=== PATIENT | female | born 1970 | race Caucasian/White ===

== ENCOUNTER → 2022-05-04 14:57 | Outpatient (CLI) | payer BC, SELFPAY ==
[2022-05-04 13:58] LABS: Alanine Aminotransferase 26 U/L (12-78); Albumin Level 4.4 g/dl (3.5-5.0); Albumin/Globulin Ratio 1.8 (1.1-1.8); Alkaline Phosphatase 67 U/L (38-126); Anion Gap 10.9 mEq/L (5-15); Aspartate Amino Transferase 33 U/L (14-36); Bilirubin,Total 0.6 mg/dl (0.2-1.3); Blood Urea Nitrogen 14 mg/dl (7-17); Calcium 9.6 mg/dl (8.4-10.2); Carbon Dioxide 29 mmol/L (22.0-30.0); Chloride 104 mmol/L (98-107); Chol/HDL Ratio 3.5 (1-3.5); Cholesterol 217 mg/dl (140-200); Estimated Glomerular Filt Rate 105 ml/min (>60); GFR (African American) 127 ML/MIN (>60); Globulin 2.5 g/dL (1.3-3.2); Glucose 105 mg/dl (74-100); HDL Cholesterol 62 mg/dl (40-60); Potassium 3.9 mmoL/L (3.5-5.1); Sodium 140 mmol/L (136-145); Total Protein,Serum 6.9 g/dl (6.3-8.2); Triglycerides 62 mg/dl (30-150); Uric Acid 4.2 mg/dl (2.5-6.2); VLDL Cholesterol 12 mg/dL (0-40)
[2022-05-04 14:03] LABS: Basophils # 0.1 K/mm3 (0-0.2); Basophils % 1.9 % (0.1-2.0); Eosinophils # 0.1 K/mm3 (0.0-0.4); Eosinophils % 1.2 % (0.1-12.0); Hematocrit 42.4 % (37.0-47.0); Hemoglobin 13.9 g/dL (12.2-16.2); Lymphocytes # 1.4 K/mm3 (0.7-4.5); Lymphocytes % 31.3 % (10-50); Mean Corpuscular HGB Conc 32.9 g/dL (31.8-35.4); Mean Corpuscular Volume 97.3 fl (81-99); Mean Platelet Volume 11.4 fl (7.4-10.4); Monocytes # 0.2 K/mm3 (0.1-1.0); Monocytes % 4.2 % (1.7-9.3); Neutrophils # 2.6 K/mm3 (1.8-7.8); Neutrophils % 61.4 % (37.0-80.0); Platelet Count 167 K/mm3 (142-424); Red Blood Count 4.36 M/mm3 (4.20-5.40); Red Cell Distribution Width 13.8 % (11.5-17.5); White Blood Count 4.3 K/mm3 (4.8-10.8)
[2022-05-04 14:09] LABS: C-Reactive Protein 0.3 mg/L (0-4); Direct LDL Cholesterol 110.89 mg/dL (100-129)
[2022-05-04 14:16] LABS: 25-OH Vitamin D, Total 31.7 ng/mL (30-100)
[2022-05-04 14:29] LABS: Thyroid Stimulating Hormone 0.99 uIU/mL (0.465-4.68)
[2022-05-04 14:48] LABS: Vitamin B12 428 pg/mL (239-931)
[2022-05-04 15:19] LABS: Erythrocyte Sedimentation Rate 16 mm/hr (0-30)
[2022-05-05 08:07] LABS: RA Latex Turbid. <10.0 IU/mL (<14.0)
[2022-05-05 14:20] LABS: Anti-Centromere B Antibodies <0.2 AI (0.0-0.9); Anti-DNA (DS) Ab Qn 1 IU/mL (0-9); Anti-Jo-1 <0.2 AI (0.0-0.9); Anti-Smith Antibody <0.2 AI (0.0-0.9); Antichromatin Antibodies <0.2 AI (0.0-0.9); Antiscleroderma-70 Antibodies <0.2 AI (0.0-0.9); RNP Antibodies <0.2 AI (0.0-0.9); Sjogren's Anti-SS-A <0.2 AI (0.0-0.9); Sjogren's Anti-SS-B <0.2 AI (0.0-0.9)
[2022-05-06 03:40] LABS: Anti-Cyclic Citrullinated Pept 4 units (0-19)
== END ==
PROVIDERS: PCP Physician Assistant; Visit Provider Physician Assistant
DX: M25.50 Pain in unspecified joint (principal); Z76.89 Persons encountering health services in other specified circumstances
CPT/HCPCS: 80053; 80061; 82306; 82607; 84443; 84550; 85025; 85651; 86140; 86200; 86225; 86235; 86431

== ENCOUNTER → 2022-11-23 11:08 | Outpatient (CLI) | payer BC, SELFPAY ==
--- NOTE | 2022-11-23 11:13 | XR_ITS ---
FINAL REPORT CLINICAL HISTORY: bone spur FINDINGS: LEFT FOOT Three views of the left foot demonstrate no acute fracture or dislocation. The joint spaces are preserved. The soft tissues are unremarkable. IMPRESSION: No acute bony abnormality. Reviewed, Interpreted and Dictated by Endy Altamirano MD Transcribed by Kezia Hancock Authenticated and [facility]
--- NOTE | 2022-11-23 11:13 | XR_ITS ---
FINAL REPORT CLINICAL HISTORY: bone spur FINDINGS: RIGHT FOOT Three views of the right foot demonstrate no acute fracture or dislocation. There is mild bunion deformity. There are mild degenerative changes in the 1st MTP joint. The remaining osseous structures are unremarkable. The soft tissues are unremarkable. IMPRESSION: Mild degenerative change as above with no acute bony abnormality. Reviewed, Interpreted and Dictated by Endy Altamirano MD Transcribed by Kezia Hancock Authenticated and . [facility]
== END ==
PROVIDERS: PCP Nurse Practitioner Family; Visit Provider Podiatrist
DX: M77.9 Enthesopathy, unspecified (principal)
CPT/HCPCS: 73630

== ENCOUNTER 2023-12-18 16:59 | Outpatient (CLI) | payer BC, SELFPAY ==
--- NOTE | 2023-12-18 | XR_ITS ---
PROCEDURE INFORMATION: Exam: XR Chest Exam date and time: 12/18/2023 5:05 PM Age: 53 years old Clinical indication: Pre-operative exam; Cardiovascular screening and respiratory screening exam; Patient HX: Pre-op for upcoming plantar fascitis SX jan 02. Former smoker- quit 2.5 yrs ago. HX of low BP. ; Additional info: Pre op TECHNIQUE: Imaging protocol: Radiologic exam of the chest. Views: 2 views. Total images: 2 COMPARISON: No relevant prior studies available. FINDINGS: Lungs: Unremarkable. No consolidation. Pleural spaces: Unremarkable. No pleural effusion. No pneumothorax. Heart/Mediastinum: Unremarkable. No cardiomegaly. Bones/joints: Unremarkable. IMPRESSION: No acute findings.
--- NOTE | 2023-12-18 17:19 | ECG_ITS ---
APPROVED REPORT Exam: Resting ECG HR:77 bpm ECG Measurements Heart Rate 77 AXES WI 176 P 80 QRSd 88 QRS 83 QT 366 T 58 QTc 398 Conclusion SINUS RHYTHM LOW QRS VOLTAGE IN PRECORDIAL LEADS [QRS DEFLECTION < 1.0 mV IN CHEST LEADS] BORDERLINE ECG INTERPRETATION BASED ON A DEFAULT AGE OF 40 YEARS UNCONFIRMED REPORT Electronically signed by : Rupesh Pineda MD 12/19/2023 16:39:58
== END 2023-12-18 23:59 ==
LOC: RAD 17:00
PROVIDERS: PCP Nurse Practitioner Family; Visit Provider Nurse Practitioner Family
DX: Z01.818 Encounter for other preprocedural examination (principal)
CPT/HCPCS: 71046; 93005

== ENCOUNTER 2023-12-28 12:45 | Outpatient (CLI) | payer BC, SELFPAY ==
--- NOTE | 2023-12-28 12:45 | NM_ITS ---
APPROVED REPORT Exam: Nuclear Stress Test Indication: Chest pain, Family history Patient Location: Outpatient Stress Tech: Goldie TOBIN Tech:Staci Zimmerman ADRIÁN RT(R)(N) Ht: 5 ft 3 in Wt: 165 lbs Bra Size: 38DDD HR: 62 bpm BP: 116/69 mmHg BSA: 1.78 m2 Rhythm: NSR TID: 1.39 BMI: 29.2 History: Chest pain, Family history Procedure: Patient exercised on Tucker protocol 5:00 minutes and sec, resting heart rate 62 bpm, resting blood pressure 116/69 mmHg, with exercise maximum heart rate achived was 155 bpm which is 93 % of the maximum predicted heart rate and blood pressure was 148/70 mmHg. Test was stopped due to SOB and fatigue. Patient denied any complaint of chest pain. Patient has average exercise capacity, achieved 7.0 METs of workload on treadmill, the blood pressure response to exercise was normal. Cardiac Stress and Resting SPECT Images: Cardiac Stress and Resting SPECT images were obtained using technetium 99m Myoview 32.6 mCi stress and 10.72 mCi at rest. Resting and stress imaging in supine and prone positions demonstrate a medium sized, moderate, partially reversible perfusion defect in the mid to distal anterior LV wall, involving the LV apex. There is increased transient ischemic dilatation ratio (TID 1.39), suggestive of possible multivessel disease or balanced ischemia. Gated imaging demonstrates normal global LV systolic function. There is mild hypokinesis in the mid to distal anterior LV wall. LVEF is calculated at 56%. Conclusion: Medium sized, moderate, partially reversible perfusion defect in the mid to distal anterior LV wall, involving the LV apex. Findings are suggestive of partial reversible ischemia. Increased transient ischemic dilatation ratio (TID 1.39), suggestive of possible multivessel disease or balanced ischemia. Gated imaging demonstrates normal global LV systolic function. There is mild hypokinesis in the mid to distal anterior LV wall. LVEF is calculated at 56%. Electronically signed by : Madeline Cespedes MD 12/31/2023 15:41:48
--- NOTE | 2023-12-28 13:20 | CA_ITS ---
APPROVED REPORT EXAM: Comprehensive 2D, Doppler, and color-flow Echocardiogram Cryptologic Linguist: Lisseth Fontanez RVT Ht: 5 ft 3 in Wt: 167lbs BSA: 1.79 BP: 110/65 mmHg Indications: CP,PRE-OP,MURMUR,ABN EKG 2D Dimensions LA Volume 46.60 mL LA Volume Index 26.03 mL/m2 (M/F) 16-34 M-Mode Dimensions RVDd 3.25 cm (0.9-2.6) LA Diam 3.35 cm (1.9-4.0) LVDd 4.82 cm (3.5-5.7) LVDs 3.22 cm (3.5-5.7) IVSd 0.46 cm (0.6-1.1) PWd 0.32 cm (0.6-1.1) EF (Teich) 61.70% FS 33.20% EDV (Teich) 108.60 mL TAPSE 1.68 (<1.7) ESV (Teich) 41.60 mL LV Diastology E Decel Time 233 (160-240 msec) E/A Ratio 0.7 Aortic Valve ANTONELLA Index 1.16 cm2/m2 AoV Peak Joaquin. 127.0 (50-130 cm/s) AO Peak GR. 6.40 mmHg AO Mean GR. 3.60 (<5 mmHg) AO VTI 25.1 (18-25 cm) ANTONELLA (VTI) 2.13 (2.5-4.5 cm2) Mitral Valve MV E Max Joaquin. 49.0 (40-130 cm/s) MV A Velocity 75.0 (40-130 cm/s) E/A Ratio 0.66 MV PHT 68.0 ms Pulmonary Valve PV Peak Velocity 57.0 (50-150 cm/s) Tricuspid Valve TR P. Velocity 221.00 cm/s RAP Estimate 10.00 mmHg RVSP 29.50 mmHg Left Ventricle The left ventricle is normal size. The left ventricular systolic function is low normal. Proximal septal thickening is noted. There is normal LV segmental wall motion. Transmitral Doppler flow pattern suggests impaired LV relaxation. LVEF is 50%. Right Ventricle The right ventricle is normal size. The right ventricular systolic function is normal. Atria The left atrium size is normal. The right atrium size is normal. There is no Doppler evidence of interatrial shunt. Aortic Valve The aortic valve opens well. There is no aortic valvular stenosis. No aortic regurgitation is present. Mitral Valve The mitral valve is normal in structure. No evidence of mitral valve stenosis. Trace mitral regurgitation. Tricuspid Valve The tricuspid valve leaflets are thin and pliable. Trace tricuspid regurgitation. RVSP is 20-25 mmHg. Pulmonic Valve The pulmonary valve is normal in structure. Trace pulmonic regurgitation. Great Vessels The aortic root is normal in size. The ascending aorta is normal in size. IVC is normal in size and collapses >50% with inspiration. Pericardium There is no pericardial effusion. Other Information Study Quality: Fair Conclusion Low normal LV systolic function (LVEF 50%). Normal RV size size and function. No significant valvular stenosis or regurgitation. Electronically signed by : Madeline Cespedes MD 01/01/2024 00:35:08
--- NOTE | 2023-12-28 14:19 | CA_ITS ---
APPROVED REPORT Exam: Exercise Treadmill Technologist: Abbey Phelps, Ht: 5 ft 3 in Wt: 167 lbs BSA: 1.79 m2 HR: 62 bpm BP: 116/69 mmHg Rhythm: NSR Stress Test Details Test: Tucker HR Resting HR: 64 bpm Max Heart Rate (APMHR): 166 bpm Max HR Achieved: 155 bpm Target HR (85% APMHR): 141 bpm % of APMHR: 93 Recovery HR: 82 bpm HR response to stress: Normal HR response to stress BP Resting BP: 122.0/74.0 mmHg Max BP: 148.0/70.0 mmHg Recovery BP: 109.0/61.0 mmHg BP response to stress: Normal blood pressure response to stress. ECG Resting ECG: NSR, rightward axis, inferior T wave abnormalities in inferior leads, PVCs Stress EC.[address] depression, new T-wave changes in lateral leads Arrhythmia: PVCs Recovery ECG: Return to baseline within 5 minutes of recovery Recovery Arrhythmia: PVCs Clinical Exercise duration: 05:00 min Highest Stage Achieved: II Exercise capacity: 7.0 METs Overall Exercise Capacity for Age: Average Stress ECG Conclusion The patient was able to exercise for a total of 5 minutes, 0 seconds. She achieved a total of 7.0 METS. She has an average exercise capacity compared to age and sex matched peers. She has normal HR and BP response to exercise. Max HR: 155 % of PM: 93% Max BP: 148/70 METs: 7.0 Test stopped due to: SOA, Fatigue Symptoms: SOA. No CP. Arrhythmias/Ectopy: Occasional PVCs ST-T Changes: 0.[address] depression, new T wave changes. Conclusion: Average exercise capacity. ECG stress test suggestive of ischemia at peak stress. Myoview images reported separately. Test Summary REST . . . . . . . Sitting REST . . . . . . . Standing REST 04:40 0.0 0.0 64 . 122/ 74 . . Stage 1 01:00 10.0 1.7 108 . . . . Stage 1 02:00 10.0 1.7 120 . . . . Stage 1 03:00 10.0 1.7 119 . 148/ 70 . . Stage 2 01:00 12.0 2.5 144 . . . . Stage 2 . . . . . . . Cardiolite injected Stage 2 02:00 12.0 2.5 154 . . . Stop exercise at 05:00 RECOVERY 01:00 0.0 0.0 119 . . . . RECOVERY 02:00 0.0 0.0 84 . . . . RECOVERY 03:00 0.0 0.0 78 . 134/ 65 . . RECOVERY 04:00 0.0 0.0 74 . 134/ 65 . . RECOVERY 05:00 0.0 0.0 73 . 134/ 65 . . RECOVERY 06:00 0.0 0.0 75 . 102/ 62 . . RECOVERY 07:00 0.0 0.0 84 . 102/ 62 . . RECOVERY 08:00 0.0 0.0 83 . 102/ 62 . . RECOVERY 09:00 0.0 0.0 69 . 102/ 62 . . RECOVERY 10:00 0.0 0.0 73 . 102/ 62 . . RECOVERY 10:14 0.0 0.0 81 . 109/ 61 . . Electronically signed by : Madeline Cespedes MD 12/31/2023 15:39:03
[2023-12-28] MEDS: ISOTOPE MYOVIEW (PER STUDY) 1 DOSE IV (15:23)
[2023-12-28] MEDS: SODIUM CHLORIDE 0.9% 10ML SYR (RAD ONLY) 10 ML IV ×2 (15:23)
== END 2023-12-28 23:59 ==
LOC: RAD 12:45
PROVIDERS: PCP Nurse Practitioner Family; Visit Provider Physician Assistant
DX: Z01.810 Encounter for preprocedural cardiovascular examination (principal); R06.00 Dyspnea, unspecified; R07.9 Chest pain, unspecified; R60.0 Localized edema; R94.31 Abnormal electrocardiogram [ECG] [EKG]; Z82.49 Family history of ischemic heart disease and other diseases of the circulatory system
CPT/HCPCS: 78452; 93017; 93018; 93306; A9502

== ENCOUNTER 2024-01-09 08:01 | Day surgery (SDC) | payer BC, SELFPAY ==
[2024-01-09] VITALS (12 sets, daily range): BP systolic 102–128; BP diastolic 61–78; PULSE 56–74; RESP 15–20; TEMP 36.6; O2SAT 94–100; BMI 29.2
--- NOTE | 2024-01-09 07:07 | IR_ITS ---
APPROVED REPORT Patient Location: Outpatient PROCEDURES Left heart catheterization Left ventriculogram Selective coronary angiogram INDICATION Abnormal Myoview, Reoperative evaluation, Informed consent was obtained prior to the procedure. COMPLICATIONS NONE Estimated Blood Loss: LESS THAN 10 ML TECHNIQUE One percent lidocaine used to anesthetize the right anterior aspect of the wrist. The right radial artery was accessed via the Seldinger technique. A 6 Maori sheath was placed in the right radial artery. 2.5 mg of Verapamil, 800 mcg of nitroglycerin, 1mg Lidocaine and 5000 U Heparin were given through the arterial sheath. The papa catheter was also used to perform left heart catheterization, left ventriculogram and selective coronary angiogram. At the end of the procedure the sheath was removed good hemostasis was achieved using Traclet band, patient was transferred to the postop holding area in stable condition. ANGIOGRAPHIC RESULTS The left main artery Normal The left anterior descending artery Normal The circumflex artery Normal The right coronary artery Dominant normal The DELGADO ventriculogram reveals Normal 65% The left ventricular end-diastolic pressure 10 to 15 mmHg IMPRESSION Normal coronary arteries Normal ejection fraction Normal LVEDP PLAN 1. Patient is a low and acceptable risk to proceed with elective surgery Electronically signed by : Guilherme Garcia MD 01/09/2024 10:08:23
[2024-01-09 08:27] LABS: Basophils # 0.1 K/mm3 (0-0.2); Basophils % 1.1 % (0.1-2.0); Eosinophils # 0.1 K/mm3 (0.0-0.4); Hematocrit 39.7 % (37.0-47.0); Hemoglobin 13.2 g/dL (12.2-16.2); Lymphocytes # 1.7 K/mm3 (0.7-4.5); Lymphocytes % 38.4 % (10-50); Mean Corpuscular HGB Conc 33.2 g/dL (31.8-35.4); Mean Corpuscular Hemoglobin 30.6 pg (27.0-31.2); Mean Corpuscular Volume 92.2 fl (81-99); Mean Platelet Volume 10.2 fl (7.4-10.4); Monocytes # 0.3 K/mm3 (0.1-1.0); Monocytes % 6.1 % (1.7-9.3); Neutrophils # 2.2 K/mm3 (1.8-7.8); Neutrophils % 51.4 % (37.0-80.0); Platelet Count 169 K/mm3 (142-424); Red Blood Count 4.31 M/mm3 (4.20-5.40); Red Cell Distribution Width 14.1 % (11.5-17.5); White Blood Count 4.3 K/mm3 (4.8-10.8)
[2024-01-09 08:36] LABS: Chloride 106 mmol/L (98-107); Sodium 139 mmol/L (136-145)
[2024-01-09 08:37] LABS: Potassium 3.5 mmoL/L (3.5-5.1)
[2024-01-09 08:40] LABS: Anion Gap 5.5 mEq/L (5-15); Blood Urea Nitrogen 16 mg/dl (7-17); Calcium 8.8 mg/dl (8.4-10.2); Carbon Dioxide 31 mmol/L (22.0-30.0); Creatinine Clearance Estimated 109 mL/min (50-200); Estimated Glomerular Filt Rate 87 ml/min (>60); GFR (African American) 106 ML/MIN (>60); Glucose 93 mg/dl (74-100)
[2024-01-09] MEDS: HEPARIN 1,000 UNITS/500ML NS (CATH LAB) 3000 UNIT IV (09:45)
[2024-01-09] MEDS: 0.9 % SODIUM CHLORIDE 500 ML 25 ML IV (09:45)
[2024-01-09] MEDS: VERAPAMIL 2.5MG/ML 2ML VIAL 2.5 MG IV (09:46)
[2024-01-09] MEDS: LIDOCAINE 1% 10ML MDV 20 ML IJ (09:46)
[2024-01-09] MEDS: HEPARIN 1,000 UNITS/ML 10ML VIAL (CATH LAB) 10000 UNIT IV (09:46)
[2024-01-09] MEDS: diphenhydrAMINE 50MG/ML VIAL 50 MG IV (09:46)
[2024-01-09] MEDS: NITROGLYCERIN 800MCG/8ML SYR (CATH LAB) 800 MCG IA (09:46)
[2024-01-09] MEDS: METHYLPREDNISOLONE SOD SUCC 125MG VIAL 125 MG IV (09:48)
[2024-01-09] MEDS: FAMOTIDINE 20MG/2ML VIAL 20 MG IV (09:49)
[2024-01-09] MEDS: FENTANYL 100MCG/2ML VIAL 50 MCG IV (10:02)
[2024-01-09] MEDS: MIDAZOLAM HCL 1MG/1ML 5ML VIAL 1 MG IV (10:02)
[2024-01-09] MEDS: IOPAMIDOL-370 (76%);100ML BOTTLE 40 ML IV (11:08)
== END 2024-01-09 12:57 | disposition home or self-care (01) ==
PROVIDERS: PCP Nurse Practitioner Family; Visit Provider Internal Medicine
DX: R07.9 Chest pain, unspecified (principal); R93.1 Abnormal findings on diagnostic imaging of heart and coronary circulation; R06.00 Dyspnea, unspecified; R94.31 Abnormal electrocardiogram [ECG] [EKG]; Z82.49 Family history of ischemic heart disease and other diseases of the circulatory system; Z87.891 Personal history of nicotine dependence
CPT/HCPCS: 80048; 85025; 93458; 99152; C1725; C1769; J1644; Q9967

== ENCOUNTER 2024-09-04 14:30 | Outpatient (CLI) | payer BC, SELFPAY ==
--- NOTE | 2024-09-04 14:40 | CT_ITS ---
FINAL REPORT CLINICAL HISTORY: HERNIA RUQ AND RLQ PAIN FINDINGS: CT ABDOMEN AND PELVIS WITHOUT CONTRAST TECHNIQUE: Axial CT images of the abdomen and pelvis were obtained without intravenous contrast. Coronal reformatted images were also obtained.This study was performed with techniques to keep radiation doses as low as reasonably achievable (ALARA). Individualized dose reduction techniques using automated exposure control or adjustment of mA and/or kV according to the patient's size were employed. Abdomen: The lung bases are clear. The liver parenchyma is homogeneous. The gallbladder is absent. The spleen, pancreas, adrenal glands, and kidneys are without acute abnormality. The aorta is normal in caliber. There is no free fluid or adenopathy. Pelvis: The appendix is unremarkable. The urinary bladder is decompressed. The uterus is present and lies midline. There is a small fat-containing hernia in the midline anterior pelvic wall. There is diastases of the rectus musculature and herniation of a small amount of fat. There is no bowel herniation. IMPRESSION: Small fat-containing hernia of the midline anterior pelvic wall with diastases of the rectus musculature and herniation of the small amount of fat. No bowel herniation is seen. Reviewed, Interpreted and Dictated by Luca Hess MD Transcribed by Preeti Lee Authenticated and . [facility]
== END 2024-09-04 23:59 | disposition home or self-care (01) ==
LOC: RAD 14:36
PROVIDERS: PCP Nurse Practitioner Family; Visit Provider Nurse Practitioner Family
DX: R10.31 Right lower quadrant pain (principal); K46.9 Unspecified abdominal hernia without obstruction or gangrene
CPT/HCPCS: 74176

== ENCOUNTER 2025-06-16 11:26 | Outpatient (CLI) | payer BC, SELFPAY ==
--- OUTSIDE RECORDS SUMMARY | 2025-04-25 14:00 | XMS_ITS | Encounter Summary ---
Author Organization [facility] Address [address] [place] [address] Phone [email or web address] Care Team Providers Care Human Resources Compliance Manager Name Role Phone Unavailable Primary Care Provider Unavailabl e Encounter Details Date Type Department Care Team (Late st Contact Info) Description 04/25/2025 2:00 PM EDT Office Visit [facility] [address] [place] [address] Tori Ritter PA [address] [place] [address] Overweight with body mass index (BMI) of 26 to 26.9 in adult (Primary Dx); Rheumatoid arthritis involving both knees, unspecified whether rheumatoid factor present (CMS/HCC); Hyperglycemia Social History Tobacco Use Types Packs/Day Years Used Date Smoking Tobacco: Never Smokeless Tobacco: Never Depression Answer Date Recorded PHQ Total Score 0 11/17/2023 Stress Answer Date Recorded Stress in your Life Not on file 09/22/2024 Dealing with Stress 3 09/22/2024 Comments No Sex and Gender Information Value Date Recorded Sex Assigned at Not on file Legal 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 Gender Identity Not on file Sexual Orientation Not on file documented as of this encounter Last Filed Vital Signs Vital Sign Reading Time Taken Comments Blood Pressure 100/62 04/25/2025 2:29 PM EDT Pulse 90 04/25/2025 2:29 PM EDT Temperature - - Respiratory Rate - - Oxygen Saturation - - Inhaled Oxygen Concentration - - Weight 63.9 kg (140 lb 12.8 oz) 04/25/2025 2:29 PM EDT Height 154.9 cm (5' 1 ) 04/25/2025 2:29 PM EDT Body Mass Index 26.6 04/25/2025 2:29 PM EDT documented in this encounter Progress Notes * PALMA Gonzalez - 04/25/2025 2:00 PM EDT Allergies Chart Review Health Maintenance History Immunizations Screenings Search Synopsis This Visit Vital Signs Assessment & Plan Overweight with body mass index (BMI) of 26 to 26.9 in adult - Will check labs before trying to order any weight loss medication. Even though her BMI is only 26.6, I would consider it, since she had to be on weight loss medication before to lose weight and herknees and hip pain would benefit with less weight on them as well with her RA. She understands, that insurance may deny her, unless it turns out she is diabetic. Orders: Comprehensive metabolic panel CMP (80397) Hgb A1C Hemoglobin Glycosylated (37059) Lipid panel (72355) CBC Complete blood count with diff (65569) TSH Thyroid Stimulating Hormone (91018) Rheumatoid arthritis involving both knees, unspecified whether rheumatoid factor present ([facility]) Orders: CBC Complete blood count with diff (02818) Hyperglycemia - check labs and see if she may be diabetic with her polyuria and polydipsia with having elevated blood glucose noted in chart. Orders: Comprehensive metabolic panel CMP ([id number]) Hgb A1C Hemoglobin Glycosylated (88602) CBC Complete blood count with diff (18607) Follow-up: No follow up orders placed. Subjective Rocio Bae is a 54 y.o. Reason(s) for visit on 04/25/2025: HPI: Rocio Bae presents to initiate weight management program. Today is intake visit. Pt is interested in Wegovy for weight loss. Height: 61 inches Weight: 140.8 lbs- Use to weight 185, but has taken Saxenda and Zepbound to get down to this weight, but could no longer tolerate the side effects BMI: 26.6 Last labs: 11/2024 with noted hyperglycemia Last wellness: with PCP, but not exactly sure. At what age did you develop obesity? When she moved to [facility] as an adult. Do you have any of the following conditions? Hypertension: No. 2. PCOS: No. 3. Hyperlipidemia: not sure 4. DM2: no diagnosed, but elevated blood glucose level and having excessive thirst. 5. Chronic OA: No. But has RA 6. GOVIND: No. Current or previous treatment for psychiatric/behavioral health disorder? No. Current or previous eating disorder? No. Smoking history?No. Alcohol history? No. Current medications (identify any possible obesogenic medications): No Sleep patterns: Number of hours nightly: 6-7 Menstrual history: Did not ask , planning to become in the next 6 months, or ?: No. Symptoms of low testosterone (men only)? n/a Dietary habits (number of meals per day, grazing habits, stress eating, consumption of sugary beverages)? States she just feels hungry all the time and can not control herself. Physical activity patterns? Work Diet history? Has tried every diet you can think of , Saxenda (no improvement), and Zepbound. Zepbound helped, but caused severe N/V. Any history of weight loss medications or bariatric surgery? Saxenda and Zepbound Current weight goals: 120s Are you currently monitoring caloric intake, controlling portions, and exercising? trying Family or personal history of thyroid cancer?: No. History of pancreatitis?: No. Time spent with patient: 30 minutes Review of Systems Constitutional: Positive for fatigue. Respiratory: Negative for cough and shortness of breath. Cardiovascular: Negative for chest pain, palpitations and leg swelling. Gastrointestinal: Negative for abdominal pain, constipation, diarrhea, nausea and vomiting. Musculoskeletal: Positive for arthralgias (her knees and hips), gait problem and joint swelling (vimal. her knees with her RA). Endo: Positive for polydipsia and polyuria The following portions of the patient's chart were reviewed by me during this encounter and updatedas appropriate: Tobacco Allergies Meds Problems Med Hx Surg Hx Fam Hx Objective Visit Vitals BP 100/62 Pulse 90 Ht 5' 1 Wt 140 lb 12.8 oz BMI 26.60 kg/m?? OB Status Postmenopausal Smoking Status Never BSA 1.66 m?? Physical Exam Vitals reviewed. Constitutional: General: She is not in acute distress. Appearance: She is not ill-appearing, toxic-appearing or diaphoretic. Neck: Comments: no palpable thyroid masses or enlargement Cardiovascular: Rate and Rhythm: Normal rate and regular rhythm. Pulses: Normal pulses. Heart sounds: Normal heart sounds. No murmur heard. No gallop. Pulmonary: Effort: Pulmonary effort is normal. No respiratory distress. Breath sounds: Normal breath sounds. No wheezing, rhonchi or rales. Abdominal: General: There is no distension. Palpations: Abdomen is soft. Tenderness: There is no abdominal tenderness. There is no guarding. Comments: vertical surgical scar down mid abdomen form hernia repair Musculoskeletal: Cervical back: Neck supple. No tenderness. Lymphadenopathy: Cervical: No cervical adenopathy. Neurological: Mental Status: She is alert and oriented to person, place, and time. Psychiatric: Mood and Affect: Mood normal. PALMA Gonzalez 04/25/2025 Note to patient: The Cures Act makes medical notes like these available to patients inthe interest of transparency. However, be advised this is a medical document. It is intended as peer to peer communication. It is written in medical language and may contain abbreviations or verbiagethat are unfamiliar. It may appear blunt or direct. Medical documents are intended to carry relevant information, facts as evident, and the clinical opinion of the practitioner. documented in this encounter Plan of Treatment Not on file documented as of this encounter Procedures Procedure Name Priority Date/Time Associated Diagnosis Comments CBC WITH DIFFERENTIAL/PLATELET Routine 04/25/2025 2:57 PM EDT Overweight with body mass index (BMI) of 26 to 26.9 in adult Rheumatoid arthritis involving both knees, unspecified whether rheumatoid factor present ([facility]) Hyperglycemia TSH Routine 04/25/2025 2:57 PM EDT Overweight with body mass index (BMI) of 26 to 26.9 in adult HEMOGLOBIN A1C Routine 04/25/2025 2:57 PM EDT Overweight with body mass index (BMI) of 26 to 26.9 in adult Hyperglycemia LIPID PANEL Routine 04/25/2025 2:57 PM EDT Overweight with body mass index (BMI) of 26 to 26.9 in adult COMPREHENSIVE METABOLIC PANEL Routine 04/25/2025 2:57 PM EDT Overweight with body mass index (BMI) of 26 to 26.9 in adult Hyperglycemia documented in this encounter Results * TSH Thyroid Stimulating Hormone?? (90685) (04/25/2025 2:57 PM EDT) TSH, High Sensitivity 1.57 mIU/L [facility] Comment: Reference Range > or = 20 Years 0.40-4.50 Ranges First trimester 0.26-2.66 Second trimester 0.55-2.73 Third trimester 0.43-2.91 Blood (Blood, Venous) 04/25/2025 2:57 PM EDT 04/26/2025 6:51 AM EDT us Tori [facility] LAB BLOOD ORDERABLES Final R esult [facility] [address] [place] [address] * (ABNORMAL) CBC Complete blood count with diff (50842) (04/25/2025 2:57 PM EDT) Auto WBC 4.2 3.8 - 10.8 Thousand/u L [facility] RBC 4.65 3.80 - 5.10 Million/uL [facility] Hemoglobin 13.8 11.7 - 15.5 g/dL [facility] Hematocrit 43.2 35.0 - 45.0 % [facility] MCV 92.9 80.0 - 100.0 fL [facility] MCH 29.7 27.0 - 33.0 pg [facility] MCHC 31.9(L) 32.0 - 36.0 g/dL [facility] Comment: For adults, a slight decrease in the calculated MCHC value (in the range of 30 to 32 g/dL) is most likely not clinically significant; however, it should be interpreted with caution in correlation with other red cell parameters and the patient's clinical condition. RDW 15.5(H) 11.0 - 15.0 % [facility] Platelets 201 140 - 400 Thousand/u L [facility] MPV 12.5 7.5 - 12.5 fL [facility] Neutrophils Absolute 2,264 1,500 - 7,800 cells/uL [facility] Lymphocytes Absolute 1,453 850 - 3,900 cells/uL [facility] Monocytes Absolute 332 200 - 950 cells/uL [facility] Eosinophils Absolute 101 15 - 500 cells/uL [facility] Basophils Absolute 50 0 - 200 cells/uL [facility] Neutrophils Relative 53.9 % [facility] Lymphocytes Relative 34.6 % [facility] Monocytes Relative 7.9 % [facility] Eosinophils Relative 2.4 % [facility] Basophils Relative 1.2 % [facility] Blood (Blood, Venous) 04/25/2025 2:57 PM EDT 04/26/2025 6:51 AM EDT us Tori [facility] LAB BLOOD ORDERABLES Final R esult [facility] [address] [place] [address] * (ABNORMAL) Lipid panel (79070) (04/25/2025 2:57 PM EDT) Cholesterol 256(H) <200 mg/dL [facility] Total HDL-C Direct 89 > OR = 50 mg/dL [facility] Triglycerides 57 <150 mg/dL [facility] LDL Calculated 152(H) mg/dL (calc) [facility] Comment: Reference range: <100 Desirable range <100 mg/dL for primary prevention; <70 mg/dL for patients with CHD or diabetic patients with > or = 2 CHD risk factors. LDL-C is now calculated using the Last calculation, which is a validated novel method providing better accuracy than the Friedewald equation in the estimation of LDL-C. Yousuf SIMS et al. CHADWICK. 2013;310(19): 8143-6682 (http://education.SmartKem/faq/NCY783) Chol/HDL Ratio 2.9 <5.0 (calc) [facility] Non HDL Chol. (LDL+VLDL) 167(H) <130 mg/dL (calc) [facility] Comment: For patients with diabetes plus 1 major ASCVD risk factor, treating to a non-HDL-C goal of <100 mg/dL (LDL-C of <70 mg/dL) is considered a therapeutic option. Blood (Blood, Venous) 04/25/2025 2:57 PM EDT 04/26/2025 6:51 AM EDT Tor[facility] LAB BLOOD ORDERABLES [facility] [address] [place] [address] * Hgb A1C Hemoglobin Glycosylated (01866) (04/25/2025 2:57 PM EDT) Hemoglobin A1C 5.6 <5.7 % [facility] Comment: For the purpose of screening for the presence of diabetes: <5.7% Consistent with the absence of diabetes 5.7-6.4% Consistent with increased risk for diabetes (prediabetes) > or =6.5% Consistent with diabetes This assay result is consistent with a decreased risk of diabetes. Currently, no consensus exists regarding use of hemoglobin A1c for diagnosis of diabetes in children. According to [place] Diabetes Association (ADA) guidelines, hemoglobin A1c <7.0% represents optimal control in non- diabetic patients. Different metrics may apply to specific patient populations. Standards of Medical Care in Diabetes(ADA). Blood (Blood, Venous) 04/25/2025 2:57 PM EDT 04/26/2025 6:51 AM EDT us Tori [facility] LAB BLOOD ORDERABLES Final R esult [facility] [address] [place] [address] * Comprehensive metabolic panel CMP ([id number]) (04/25/2025 2:57 PM EDT) Glucose 90 65 - 99 mg/dL [facility] Comment: Fasting reference interval BUN 11 7 - 25 mg/dL [facility] Creatinine 0.61 0.50 - 1.03 mg/dL [facility] eGFR 106 > OR = 60 mL/min/1. 73m2 [facility] BUN/Creatinine Ratio SEE NOTE: 6 - 22 (calc) [facility] Comment: Not Reported: BUN and Creatinine are within reference range. Sodium 141 135 - 146 mmol/L [facility] Potassium 4.2 3.5 - 5.3 mmol/L [facility] Chloride 102 98 - 110 mmol/L [facility] CO2 31 20 - 32 mmol/L [facility] Calcium 9.9 8.6 - 10.4 mg/dL [facility] Total Protein 7.0 6.1 - 8.1 g/dL [facility] Albumin 4.6 3.6 - 5.1 g/dL [facility] Globulin, Total 2.4 1.9 - 3.7 g/dL (calc) [facility] A/G Ratio 1.9 1.0 - 2.5 (calc) [facility] Total Bilirubin 1.0 0.2 - 1.2 mg/dL [facility] Alkaline Phosphatase 70 37 - 153 U/L [facility] AST 20 10 - 35 U/L [facility] ALT (SGPT) 17 6 - 29 U/L [facility] Blood (Blood, Venous) 04/25/2025 2:57 PM EDT 04/26/2025 6:51 AM EDT us Tori [facility] LAB BLOOD ORDERABLES Final R esult [facility] [address] [place] [address] documented in this encounter Visit Diagnoses Diagnosis Overweight with body mass index (BMI) of 26 to 26.9 in adult- Primary Rheumatoid arthritis involving both knees, unspecified whether rheumatoid factor present ([facility]) Hyperglycemia Other abnormal glucose documented in this encounter
--- NOTE | 2025-06-16 11:33 | XR_ITS ---
FINAL REPORT CLINICAL HISTORY: Hand pain FINDINGS: AP, lateral and oblique views of the right hand were obtained. There is no prior exam for comparison. There is no acute fracture or dislocation. Multi joint degenerative disease is most pronounced at the 1st carpometacarpal joint. No acute soft tissue abnormality. IMPRESSION: Degenerative changes without acute osseous abnormality of the right hand. Reviewed, Interpreted and Dictated by Naty Holbrook MD Transcribed by Christy Christopher Authenticated and . [facility]
--- NOTE | 2025-06-16 11:33 | XR_ITS ---
FINAL REPORT CLINICAL HISTORY: neck and lower back pain, nki FINDINGS: AP, lateral and odontoid views of the cervical spine were obtained. There is no prior exam for comparison. There is no acute fracture. Anterolisthesis of C4 on C5, C5 on C6, and C6 on C7 is likely degenerative. Vertebral body height is preserved. Multilevel degenerative disease is most pronounced in the midcervical spine. The precervical soft tissues are normal. IMPRESSION: Degenerative/chronic changes without acute osseous abnormality of the cervical spine. AP and lateral views of the lumbosacral spine were obtained. There is no prior exam for comparison. There is no acute fracture or malalignment. Vertebral body heights are preserved. Mild degenerative disc disease is most pronounced at L4-5 and L5-S1. There is no acute paraspinal abnormality. IMPRESSION: Degenerative changes without acute osseous abnormality of the lumbosacral spine. Reviewed, Interpreted and Dictated by Naty Holbrook MD Transcribed by Christy Christopher Authenticated and [facility]
--- NOTE | 2025-06-16 11:33 | XR_ITS ---
FINAL REPORT CLINICAL HISTORY: HAND PAIN FINDINGS: AP, oblique, and lateral views of the left hand were obtained. There is no prior exam for comparison. There is no acute fracture of the left hand. There is deformity of the head of the 5th middle phalanx, likely related to old injury. Multi joint degenerative disease is noted. There is no acute soft tissue abnormality. IMPRESSION: Degenerative/chronic changes without acute osseous abnormality of the left hand. Reviewed, Interpreted and Dictated by Naty Holbrook MD Transcribed by Christy Christopher Authenticated and [facility]
--- OUTSIDE RECORDS SUMMARY | 2025-06-16 11:35 | XMS_ITS | Clinical Summary ---
Author Organization [facility] Address [address] [place] [address] Care Team Providers Care Lie Detector Operator Name Role Phone Russ Cinthia Lorenzo APRN Primary Care Provider [phone] Allergies Active Allergy Reactions Criticality Noted Date Comments Iodine Other - please docum ent in the comment field Low 05/10/2023 Allergy to contrast dye Medications PARoxetine (Paxil) 10 MG tablet Take 1 tablet (10 mg) by mouth 1 (one) time each day. Active Melatonin 5 MG tablet tablet Take 1 tablet (5 mg) by mouth nightly. Active senna-docusate sodium (Senokot-S) 8.6-50 MG tablet Take 1 tablet by mouth daily. 30 tablet 01/23/2025 Active gabapentin (Neurontin) 100 MG capsule Take 1 capsule by mouth in the morning and 1 capsule in the evening and 1 capsule before bedtime. 90 capsule 02/14/2025 Active Active Problems Problem Noted Date Diagnosed Date Post-operative pain 01/30/2025 RLQ abdominal pain 01/30/2025 S/P repair of ventral hernia 12/03/2024 Incisional hernia, without obstruction or gangre ne 10/23/2024 Incisional hernia without obstruction or gangren e 10/22/2024 Family History Medical History Relation Name Comments No Known Problems Father No Known Problems Maternal Grandfather No Known Problems Maternal Grandmother No Known Problems Mother No Known Problems Paternal Grandfather No Known Problems Paternal Grandmother Relation Name Status Comments Father Maternal Grandfather Maternal Grandmother Mother Paternal Grandfather Paternal Grandmother Social History Tobacco Use Types Packs/Day Years Used Date Smoking Tobacco: Former Cigarettes Q uit: 2021 Passive Smoke Exposure: Never Smokeless Tobacco: Never Tobacco Cessation:Counseling Given: Not Answered Alcohol Use Standard Drinks/Week Comments Yes 0 (1 standard drink = 0.6 oz pur e alcohol) social PHQ-2 Answer Date Recorded Patient Health Questionnaire-2 Score 0 01/15/2025 PHQ-9 Answer Date Recorded Patient Health Questionnaire-9 Score 0 01/15/2025 Comments No Sex and Gender Information Value Date Recorded Sex Assigned at Female 11/25/2024 7:51 AM EST Legal Sex Female 2:14 PM EDT Gender Identity Not on file Sexual Orientation Not on file Last Filed Vital Signs Vital Sign Reading Time Taken Comments Blood Pressure 143/86 03/05/2025 1:15 PM EDT Pulse 83 03/05/2025 1:15 PM EDT Temperature 36.4 C (97.5 F) 03/05/2025 1:15 PM EDT Respiratory Rate 16 03/05/2025 1:15 PM EDT Oxygen Saturation 97% 03/05/2025 1:15 PM EDT Inhaled Oxygen Concentration - - Weight 66.2 kg (145 lb 14.4 oz) 03/05/2025 1:15 PM EDT Height 162 cm (5' 3.78 ) 03/05/2025 1:15 PM EDT Body Mass Index 25.22 03/05/2025 1:15 PM EDT Plan of Treatment Health Maintenance Due Date Last Done Comments [facility]-HIV Screening 1969 [facility]-Hepatitis C Screening 1969 [facility]-/Child/Adol SDOH Screenings 1969 [facility]- SDOH Screenings 1987 [facility]-Adult SDOH Screenings 1987 [facility]-DTaP,Tdap,and Td Vaccines (1 - Tdap) 1988 [facility]-Hepatitis B Vaccines (1 of 3 - 19+ 3-dose series) 1988 [facility]-Pap Smear 1990 [facility]-Cervical Cancer Screening 1999 [facility]-HPV/Cotest 1999 CT Colonography 2014 Colonoscopy 2014 FIT-DNA 2014 FIT 2014 FOBT 2014 Sigmoidoscopy 2014 [facility]-Colorectal Cancer Screening 2014 [facility]-Breast Cancer Screening 2019 [facility]-Pneumococcal Vaccine: 50+ Years (1 of 1 - PCV) 2019 [facility]-Zoster Vaccines (1 of 2) 2019 [facility]-WPOJS-60 Vaccine (3 - season) 2024 01/27/2021, 12/30/2020 [facility]-Influenza Vaccine (#1) 2025 08/13/2024 [facility]-Depression Screening 01/15/2026 01/15/2025, 12/22 [facility]-Obesity Intervention Completed 025, 02/14/2025, 01/30/2025, Additional history exists HPV Vaccines Aged Out No longer eligi ble based on patient's age to complete this topic [facility]-HIB Vaccines Aged Out No longer e ligible based on patient's age to complete this topic [facility]-Hepatitis A Vaccines Aged Out No longer eligible based on patient's age to complete this topic [facility]-IPV Vaccines Aged Out No longer e ligible based on patient's age to complete this topic [facility]-Rotavirus Vaccines Aged Out No lo nger eligible based on patient's age to complete this topic Medical Devices Implanted Type Area Sustainability Specialist Device Identifier Shelf Expiration Date Model / Serial / Lot Mesh Phasix 10x12 In - [id number] - [id number] Implanted:Qty: 1 on 11/25/2024 by Morales Almonte MD at [facility] N/A: Abdomen [id number] 06/16/2026 [id number] / [id number] / [id number] [facility] Advance Directives Documents on File Type Date Recorded Patient Translator/Interpreter Expl anation Advance Directives and Living Will 10/23/2024 * Full Code (Latest Code Status on File) Date Activated Date Inactivated Comments 11/25/2024 3:39 PM 11/27/2024 3:44 PM Question Answer Comments Patient has decision-making capacity? Yes Care Teams Lie Detector Operator Relationship Specialty Start Date End Date Citnhia Solano APRN [address] [place] [address] DAMON Goins [address] PCP - General 12/03/24
--- OUTSIDE RECORDS SUMMARY | 2025-06-16 11:35 | XMS_ITS | Encounter Summary ---
Author Organization [facility] Address [address] [place] [address] Care Team Providers Care Radiology Transcriptionist Name Role Phone Rocco Quinonez MD Primary Care Provider Cinthia Solano APRN Primary Care Provider [phone]- [phone] Encounter Details Date Type Department Care Team ([facility] st Contact Info) Description 09/04/2024 Orders Only External Location [address] [place] [address] Cinthia Solano APRN [address] [place] [address] Social History Tobacco Use Types Packs/Day Years Used Date Smoking Tobacco: Never Assessed Comments Unknown Sex and Gender Information Value Date Recorded Sex Assigned at Female 11/25/2024 7:51 AM EST Legal Sex Female 2:14 PM EDT Gender Identity Not on file Sexual Orientation Not on file documented as of this encounter Plan of Treatment Not on file documented as of this encounter Procedures Procedure Name Priority Date/Time Associated Diagnosis Comments CT ABDOMEN PELVIS WO IV CONTRAST 09/04/2024 2:42 PM EDT documented in this encounter Results * CT Abdomen Pelvis wo IV Contrast (09/04/2024 2:42 PM EDT) Anatomical Region Laterality Modality Abdomen, Pelvis Computed Tomogra phy 09/04/2024 2:42 PM EDT us Cinthia Solano APRN IMG CT PROCEDURES Final Re sult documented in this encounter Visit Diagnoses Not on filedocumented in this encounter Care Teams Radiology Transcriptionist Relationship Specialty Start Date End Date Rocco Quinonez MD [address] [place] [phone] PCP - General Cardiology 09/15/21 12/02/24 Cinthia Solano APRN [address] [place] [address] PCP - General 12/03/24 documented as of this encounter
--- OUTSIDE RECORDS SUMMARY | 2025-06-16 11:35 | XMS_ITS | Clinical Summary ---
Author Organization [facility] Address [address] [place] [id number] Phone [email or web address] Providers Care Crepe Maker Name Role Phone Unavailable Primary Care Provider Unavailabl e Allergies Active Allergy Reactions Criticality Noted Date Comments Iodine Other (see comments),Rash High 05/10/2023 Allergy to contrast dye Medications cyclobenzaprine (FLEXERIL) 5 MG tablet TAKE 1 TABLET BY MOUTH THREE TIMES DAILY NEEDED MUSCLE SPASMS FOR UP TO 10 DAYS Active gabapentin (NEURONTIN) 100 MG capsule TAKE 1 CAPSULE BY MOUTH IN THE MORNING AND TAKE 1 CAPSULE BY MOUTH IN THE EVENING AND THEN TAKE 1 CAPSULE BY MOUTH AT BEDTIME 02/14/2025 Active PARoxetine (PAXIL) 10 MG tablet Take 10 mg by mouth 1 (one) time each day. 02/28/2025 Active Active Problems No known active problems Encounters Date Type Department Care Team Description 04/28/2025 Orders Only [facility] [address] [facility] [address] [place] [phone] Vanita Vernon NP Overweight (BMI 25.0-29.9) (Primary Dx); Hypercholesterolemia 04/25/2025 2:00 PM EDT Office Visit [facility] [address] [facility] [address] [place] [phone] Tori Ritter, PA Overweight with body mass index (BMI) of 26 to 26.9 in adult (Primary Dx); Rheumatoid arthritis involving both knees, unspecified whether rheumatoid factor present (CMS/HCC); Hyperglycemia from Last 3 Months Social History Tobacco Use Types Packs/Day Years Used Date Smoking Tobacco: Never Smokeless Tobacco: Never Tobacco Cessation:Counseling Given: Not Answered Depression Answer Date Recorded PHQ Total Score 0 11/17/2023 Stress Answer Date Recorded Stress in your Life Not on file 09/22/2024 Dealing with Stress 3 09/22/2024 Comments No Sex and Gender Information Value Date Recorded Sex Assigned at Not on file 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 Gender Identity Not on file Sexual Orientation Not on file Last Filed Vital Signs Vital Sign Reading Time Taken Comments Blood Pressure 100/62 04/25/2025 2:29 PM EDT Pulse 90 04/25/2025 2:29 PM EDT Temperature 36.3 C (97.3 F) 10/25/2024 9:49 PM EST Respiratory Rate 16 03/06/2025 4:17 PM EDT Oxygen Saturation 96% 03/06/2025 4:17 PM EDT Inhaled Oxygen Concentration - - Weight 63.9 kg (140 lb 12.8 oz) 04/25/2025 2:29 PM EDT Height 154.9 cm (5' 1 ) 04/25/2025 2:29 PM EDT Body Mass Index 26.6 04/25/2025 2:29 PM EDT Plan of Treatment Health Maintenance Due Date Last Done Comments Dental Cleaning/Exam 1969 HIV Screening 1969 Hepatitis C Screening 1969 Cervical Cancer Screening 1985 Hep B Infection Screening - Triple Screen 1987 Hepatitis B Immunization (1 of 3 - 19+ 3-dose series) 1988 Tetanus Diphtheria and Pertussis Immunization (1 - Tdap) 1988 Breast Cancer Screening 1999 Colorectal Cancer Screening 1999 Zoster Immunization (1 of 2) 2019 Annual Preventive Exam 12/15/2023 12/15/2022 Covid-19 Immunization (3 - 2023- season) 2024 01/27/2021, 12/30/2020 Influenza Immunization (#1) 2025 08/13/2024 HIB Immunization Aged Out No longer e ligible based on patient's age to complete this topic HPV Immunization Aged Out No longer e ligible based on patient's age to complete this topic Hepatitis A Immunization Aged Out No longer eligible based on patient's age to complete this topic Pneumococcal: Ped (0 to 5 Yrs) and At-Risk Member (6 to 64 Yrs) Aged Out No longer eligible b ased on patient's age to complete this topic Polio Immunization Aged Out No longer eligible based on patient's age to complete this topic Procedures Procedure Name Priority Date/Time Associated Diagnosis Comments TSH Routine 04/25/2025 2:57 PM EDT Overweight with body mass index (BMI) of 26 to 26.9 in adult CBC WITH DIFFERENTIAL/PLATELET Routine 04/25/2025 2:57 PM EDT Overweight with body mass index (BMI) of 26 to 26.9 in adult Rheumatoid arthritis involving both knees, unspecified whether rheumatoid factor present ([facility]) Hyperglycemia LIPID PANEL Routine 04/25/2025 2:57 PM EDT Overweight with body mass index (BMI) of 26 to 26.9 in adult HEMOGLOBIN A1C Routine 04/25/2025 2:57 PM EDT Overweight with body mass index (BMI) of 26 to 26.9 in adult Hyperglycemia COMPREHENSIVE METABOLIC PANEL Routine 04/25/2025 2:57 PM EDT Overweight with body mass index (BMI) of 26 to 26.9 in adult Hyperglycemia from Last 3 Months Results * (ABNORMAL) CBC Complete blood count with diff (69328) (04/25/2025 2:57 PM EDT) Auto WBC 4.2 [...] BLOOD ORDERABLES Final R esult [facility] [address] [place] [address] * TSH Thyroid Stimulating Hormone?? (75907) (04/25/2025 2:57 PM EDT) Pathologist [facility] TSH, High Sensitivity 1.57 mIU/L [facility] Comment: Reference Range > or = 20 Years 0.40-4.50 Ranges First trimester 0.26-2.66 Second trimester 0.55-2.73 Third trimester 0.43-2.91 Blood (Blood, Venous) 04/25/2025 2:57 PM EDT 04/26/2025 6:51 AM EDT [facility] BLOOD ORDERABLES Final R esult Performing Organization Address City/[facility]/ZIP Co de Phone Number [facility] [address] [place] [address] * Hgb A1C Hemoglobin Glycosylated ([id number]) (04/25/2025 2:57 PM EDT) Hemoglobin A1C 5.6 <5.7 % [facility] Comment: For the purpose of screening for the presence of diabetes: <5.7% Consistent with the absence of diabetes 5.7-6.4% Consistent with increased risk for diabetes (prediabetes) > or =6.5% Consistent with diabetes This assay result is consistent with a decreased risk of diabetes. Currently, no consensus exists regarding use of hemoglobin A1c for diagnosis of diabetes in children. According to [place] Diabetes Association (ADA) guidelines, hemoglobin A1c <7.0% represents optimal control in non- diabetic patients. Different metrics may apply to specific patient populations. Standards of Medical Care in Diabetes(ADA). Blood (Blood, Venous) 04/25/2025 2:57 PM EDT 04/26/2025 6:51 AM EDT us [facility]i [facility] BLOOD ORDERABLES Final R esult Performing Organization Address [facility]/ZIP Co de Phone Number [facility] [address] [place] [address] * (ABNORMAL) Lipid panel (95202) (04/25/2025 2:57 PM EDT) Cholesterol 256(H) <200 mg/dL [facility] Total HDL-C Direct 89 > OR = 50 mg/dL [facility] Triglycerides 57 <150 mg/dL [facility] LDL Calculated 152(H) mg/dL (calc) [facility] Comment: Reference range: <100 Desirable range <100 mg/dL for primary prevention; <70 mg/dL for patients with CHD or diabetic patients with > or = 2 CHD risk factors. LDL-C is now calculated using the Last calculation, which is a validated novel method providing better accuracy than the Friedewald equation in the estimation of LDL-C. Yousuf SS et al. CHADWICK. 2013;310(19): 1674-8116 (http://education.Social Intelligence/faq/TWX409) Chol/HDL Ratio 2.9 <5.0 (calc) [facility] Non HDL Chol. (LDL+VLDL) 167(H) <130 mg/dL (calc) [facility] Comment: For patients with diabetes plus 1 major ASCVD risk factor, treating to a non-HDL-C goal of <100 mg/dL (LDL-C of <70 mg/dL) is considered a therapeutic option. Blood (Blood, Venous) 04/25/2025 2:57 PM EDT 04/26/2025 6:51 AM EDT us [facility] BLOOD ORDERABLES Final R esult [facility] [address] [place] [address] * Comprehensive metabolic panel [facility] ([id number]) (04/25/2025 2:57 PM EDT) [facility] Glucose 90 65 - 99 mg/dL [facility] Comment: Fasting reference interval BUN 11 7 - 25 mg/dL [facility] Creatinine 0.61 0.50 - 1.03 mg/dL [facility] eGFR 106 > OR = 60 mL/min/1. 73m2 [facility] BUN/Creatinine Ratio SEE NOTE: (calc) [facility] Comment: Not Reported: BUN and Creatinine are [...] BLOOD ORDERABLES Final R esult [facility] [address] [place] [address] from Last 3 Months Insurance OPT OUT COPAY 25 NB
--- OUTSIDE RECORDS SUMMARY | 2025-06-16 11:35 | XMS_ITS | Encounter Summary ---
Author Organization [facility] Address [address] [place] [address] Phone [email or web address] Care Team Providers Care Mission Analyst Name Role Phone Unavailable Primary Care Provider Unavailabl e Encounter Details Date Type Department Care Team (Late st Contact Info) Description 04/28/2025 Orders Only [facility] [address] [facility] [address] [place] [address] Vanita Vernon, RAINA [address] [place] [address] Overweight (BMI 25.0-29.9) (Primary Dx); Hypercholesterolemia Social History Tobacco Use Types Packs/Day Years Used Date Smoking Tobacco: Never Smokeless Tobacco: Never Depression Answer Date Recorded PHQ Total Score 0 11/17/2023 Stress Answer Date Recorded Stress in your Life Not on file 09/22/2024 Dealing with Stress 3 09/22/2024 Comments No Sex and Gender Information Value Date Recorded Sex Assigned at Not on file 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
[2025-06-16 12:52] LABS: Hematocrit 43.8 % (37.0-47.0); Hemoglobin 13.7 g/dL (12.2-16.2); Immature Granulocytes % 0.4 %; Mean Corpuscular HGB Conc 31.3 g/dL (31.8-35.4); Mean Corpuscular Hemoglobin 29.5 pg (27.0-31.2); Mean Corpuscular Volume 94.4 fl (81-99); Nucleated Red Blood Cells % 0 %; Platelet Count 235 K/mm3 (142-424); Red Blood Count 4.64 M/mm3 (4.20-5.40); Red Cell Distribution Width-SD 50.3 fL; White Blood Count 5.2 K/mm3 (4.8-10.8)
[2025-06-16 13:46] LABS: Alanine Aminotransferase 24 U/L (12-78); Albumin Level 4.4 g/dl (3.5-5.0); Albumin/Globulin Ratio 1.7 (1.1-1.8); Alkaline Phosphatase 79 U/L (38-126); Anion Gap 7.5 mEq/L (5-15); Aspartate Amino Transferase 29 U/L (14-36); Bilirubin,Total 0.4 mg/dl (0.2-1.3); Blood Urea Nitrogen 15 mg/dl (7-17); Calcium 9.8 mg/dl (8.4-10.2); Carbon Dioxide 30 mmol/L (22.0-30.0); Chloride 103 mmol/L (98-107); Creatinine,Serum 0.70 mg/dl (0.52-1.04); Estimated Glomerular Filt Rate 87 ml/min (>60); GFR (African American) 105 ML/MIN (>60); Globulin 2.6 g/dL (1.3-3.2); Glucose 105 mg/dl (74-100); Potassium 4.5 mmoL/L (3.5-5.1); Sodium 136 mmol/L (136-145); Total Protein,Serum 7.0 g/dl (6.3-8.2)
[2025-06-16 13:51] LABS: C-Reactive Protein 0.6 mg/L (0-4)
== END 2025-06-16 23:59 | disposition home or self-care (01) ==
LOC: RAD 11:28
PROVIDERS: PCP Internal Medicine Rheumatology; Visit Provider Internal Medicine Rheumatology
DX: M06.4 Inflammatory polyarthropathy (principal); M43.12 Spondylolisthesis, cervical region; M47.812 Spondylosis without myelopathy or radiculopathy, cervical region; M47.816 Spondylosis without myelopathy or radiculopathy, lumbar region; M47.817 Spondylosis without myelopathy or radiculopathy, lumbosacral region; M79.641 Pain in right hand; M79.642 Pain in left hand
CPT/HCPCS: 36415; 72084; 73130; 80053; 85025; 85651; 86140